=== PATIENT | male | born 1975 | race Caucasian/White ===

== ENCOUNTER 2017-07-14 19:44 | Emergency (ER) | payer SELFPAY ==
[2017-07-14] MEDS ORDERED: Albuterol/Ipratropium 3.0-0.5 MG/3 ML Neb Soln NEB ONE (21:15)
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
== END 2017-07-14 22:05 | disposition home or self-care (01) ==
LOC: MW.ED 19:44
DX: J06.9 Acute upper respiratory infection, unspecified (principal)
CPT/HCPCS: 94640; 99283; 99283-25

== ENCOUNTER 2023-11-22 19:02 | Emergency (ER) | payer SELFPAY | END 2023-11-22 21:04 | disposition home or self-care (01) | LOC: MW.ED 19:02 | DX: J18.9 Pneumonia, unspecified organism (principal); Z75.8 Other problems related to medical facilities and other health care; Z79.899 Other long term (current) drug therapy; Z79.51 Long term (current) use of inhaled steroids; Z86.19 Personal history of other infectious and parasitic diseases | CPT/HCPCS: 71046; 71046-26; 99283 ==